=== PATIENT | female | born 1980 | race Caucasian/White ===

== ENCOUNTER 2017-07-09 13:01 | Emergency (ER) | payer SELFPAY ==
[~2017-07-09 13:01] MED LIST: CEPH-460 PO; DIAZ5 PO; IBUP800T23 PO; ROBA750T PO
[2017-07-09 13:14] VITALS: BP 115/77; PULSE 94; RESP 20; TEMP 99.3; O2SAT 97
[2017-07-09] MEDS ORDERED: SODIUM CHLORIDE 0.9% FLUSH 10 ML FLUSH IVF PRN (13:15)
--- NOTE | 2017-07-09 13:17 | PD ---
HPI Chief Complaint: OD/ Ingestion Time Seen by Provider: 13:10 Travel History International Travel<30 days: No Contact w/Intl Traveler<30days: No History of Present Illness HPI Patient comes in by EMS after being found unconscious by family. Patient states that she injected heroin in her bathroom walked in the bedroom and is the last thing she recalls. Patient received Narcan by fire department per EMS arrival that allow the patient to become alert and oriented 3. Patient denies any intentional attempt to harm her self states she is injected more heroin than normal thinking that she would be able to "handle it" causing her to overdose unintentionally. Patient denies any medical complaints this time. Denies any fevers, nausea, vomiting, abdominal pain, chest pain, shortness of breath, change bowel or bladder, dizziness, or headache. Denies anything making her symptoms better or worse. PFSH Past Medical History Respiratory: Yes (ASTHMA) Social History Alcohol Use: No Tobacco Use: Yes Substance Use: Yes (heroin) Allergies-Medications (Allergen,Severity, Reaction): Coded Allergies: doxycycline (Unverified Allergy, Intermediate, RASH, 05/28/17) methocarbamol (Verified Allergy, Unknown, SEIZURE, 07/09/17) *MDRO Multi-Drug Resistant Organism (Verified Adverse Reaction, Unknown, 10/09/16) MRSA (arm-08/08/16) Reported Meds & Prescriptions Reported Meds & Active Scripts Active Ibuprofen 800 Mg Tab 800 Mg PO TID PRN Reported Valium (Diazepam) 5 Mg Tab 5 Mg PO HS PRN Review of Systems Except as stated in HPI: all other systems reviewed are Neg Physical Exam Narrative GENERAL: Well-developed, well nourished, in no acute distress, and non-ill appearing. SKIN: Focused skin assessment warm and dry. HEAD: Atraumatic. Normocephalic. EYES: Pupils equal and round. EOMI. No scleral icterus. No injection or drainage. ENT: No nasal bleeding or discharge. Mucous membranes pink and moist. NECK: Trachea midline. No JVD. Supple. No nuclear rigidity. CARDIOVASCULAR: Regular rate and rhythm. No murmur appreciated. RESPIRATORY: No accessory muscle use. No respiratory distress. Clear to auscultation. Breath sounds equal bilaterally. GASTROINTESTINAL: Abdomen soft, non-tender, nondistended, and no guarding. Hepatic and splenic margins not palpable. Normal bowel sounds 4. No pulsatile mass. MUSCULOSKELETAL: No obvious deformities. No clubbing. No cyanosis. No edema. Full range of motion. NEUROLOGICAL: Awake and alert. No obvious cranial nerve deficits. Motor grossly within normal limits. Normal speech. PSYCHIATRIC: Appropriate mood and affect; insight and judgment normal. Data Data Last Documented VS Vital Signs Date Time Temp Pulse Resp B/P (MAP) Pulse Ox O2 Delivery O2 Flow Rate FiO2 07/09/17 16:56 80 18 102/65 (77) 99 Room Air 07/09/17 13:14 99.3 Orders Orders Electrocardiogram (07/09/17 13:11) Basic Metabolic Panel (Bmp) (07/09/17 13:11) Complete Blood Count With Diff (07/09/17 13:11) Prothrombin Time / Inr (Pt) (07/09/17 13:11) Act Partial Throm Time (Ptt) (07/09/17 13:11) Urinalysis - C+S If Indicated (07/09/17 13:11) Chest, Single Ap (07/09/17 13:11) Ct Brain W/O Iv Contrast(Rout) (07/09/17 13:11) Iv Access Insert/Monitor (07/09/17 13:11) Ecg Monitoring (07/09/17 13:11) Oximetry (07/09/17 13:11) Sodium Chloride 0.9% Flush (Ns Flush) (07/09/17 13:15) Drug Screen, Random Urine (07/09/17 13:11) Alcohol (Ethanol) (07/09/17 13:11) Salicylates (Aspirin) (07/09/17 13:11) Tylenol (Acetaminophen) (07/09/17 13:11) Ed Urine Pregnancytest Poc (07/09/17 13:11) Sodium Chlor 0.9% 1000 Ml Inj (Ns 1000 M (07/09/17 14:15) Urine Culture (07/09/17 14:00) Labs Laboratory Tests Test 07/09/17 13:50 07/09/17 14:00 White Blood Count 9.4 TH/MM3 Red Blood Count 4.19 MIL/MM3 Hemoglobin 13.1 GM/DL Hematocrit 38.8 % Mean Corpuscular Volume 92.6 FL Mean Corpuscular Hemoglobin 31.2 PG Mean Corpuscular Hemoglobin Concent 33.7 % Red Cell Distribution Width 14.3 % Platelet Count 218 TH/MM3 Mean Platelet Volume 7.7 FL Neutrophils (%) (Auto) 70.6 % Lymphocytes (%) (Auto) 20.3 % Monocytes (%) (Auto) 7.6 % Eosinophils (%) (Auto) 1.0 % Basophils (%) (Auto) 0.5 % Neutrophils # (Auto) 6.6 TH/MM3 Lymphocytes # (Auto) 1.9 TH/MM3 Monocytes # (Auto) 0.7 TH/MM3 Eosinophils # (Auto) 0.1 TH/MM3 Basophils # (Auto) 0.0 TH/MM3 CBC Comment DIFF FINAL Differential Comment Prothrombin Time 10.9 SEC Prothromb Time International Ratio 1.0 RATIO Activated Partial Thromboplast Time 26.1 SEC Blood Urea Nitrogen 11 MG/DL Creatinine 0.81 MG/DL Random Glucose 85 MG/DL Calcium Level 8.1 MG/DL Sodium Level 138 MEQ/L Potassium Level 3.6 MEQ/L Chloride Level 105 MEQ/L Carbon Dioxide Level 27.0 MEQ/L Anion Gap 6 MEQ/L Estimat Glomerular Filtration Rate 80 ML/MIN Salicylates Level 2.6 MG/DL Acetaminophen Level LESS THAN 2.0 MCG/ML Ethyl Alcohol Level LESS THAN 3 MG/DL Urine Color YELLOW Urine Turbidity HAZY Urine pH 6.5 Urine Specific [place] 1.024 Urine Protein 30 mg/dL Urine Glucose (UA) NEG mg/dL Urine Ketones NEG mg/dL Urine Occult Blood NEG Urine Nitrite NEG Urine Bilirubin NEG Urine Urobilinogen 2.0 MG/DL Urine Leukocyte Esterase LARGE Urine RBC 3 /hpf Urine WBC 24 /hpf Urine Squamous Epithelial Cells 33 /hpf Urine Bacteria OCC /hpf Urine Mucus FEW /lpf Microscopic Urinalysis Comment CULTURE INDICATED Urine Opiates Screen NEG Urine Barbiturates Screen NEG Urine Amphetamines Screen NEG Urine Benzodiazepines Screen POS Urine Cocaine Screen POS Urine Cannabinoids Screen NEG MDM Medical Decision Making Medical Screen Exam Complete: Yes Emergency Medical Condition: Yes Interpretation(s) EKG reviewed by Dr. Rueda shows normal sinus rhythm with ventricular rate of 89. No STEMI. CT the head read by the radiologist shows: Normal examination. Chest x-ray read by the radiologist shows: No acute cardiopulmonary disease. Differential Diagnosis Accidental overdose, intentional overdose, electrolyte abnormality, pneumonia, closed head injury, intracranial hemorrhage, UTI, other Narrative Course Patient was seen and examined. Initial laboratory and radiological studies were ordered. Patient was placed on traffic monitor specialist and IV was established. Labs were reviewed. I suspect the patient's urine is contaminated based on number of squamous cells. We'll await culture prior to treating as patient is asymptomatic as well. Patient was monitored in the ER for little more than 4 hours with no need for additional Narcan. Patient in no obvious distress upon re-evaluation. All pertinent laboratory/ Radiology result(s) discussed with patient. Discussed patient with Dr. Rueda , who is in agreement with plan of care and disposition. Any questions/ concerns in reference to patient diagnosis/condition discussed and clarified prior to patient's discharge. Reinforced sheer importance of close follow up with patient's primary physician or primary care clinic and/or [facility] for possible detox and rehabilitation. Instructed patient to return to ED immediately, if symptoms return/worsen. Patient showed understanding of above instructions. Further instructions and recommendations were detailed in discharge paperwork. Patient ambulated without difficulty out of ED at discharge. Diagnosis Primary Impression: Accidental heroin overdose Qualified Codes: T40.1X1A - Poisoning by heroin, accidental (unintentional), initial encounter Referrals: [facility] Patient Instructions: General Instructions, Opioid Overdose (ED) Additional Instructions: Follow-up with your primary care physician and/or [facility] for detox. Stop doing drugs. Return to the emergency department if symptoms get worse. Disposition: 01 DISCHARGE HOME Condition: Stable Yfn Oglesby Jul 09, 2017 13:17
[2017-07-09 14:02] LABS: AUTOMATED NEUTROPHIL # 6.6 TH/MM3 (1.8-7.7); BASOPHIL % 0.5 % (0.0-2.0); EOSINOPHIL # 0.1 TH/MM3 (0-0.4); HEMATOCRIT 38.8 % (35.0-46.0); HEMO FLAGS DIFF FINAL; LYMPH % 20.3 % (9.0-44.0); LYMPHOCYTE # 1.9 TH/MM3 (1.0-4.8); MEAN CELL VOLUME 92.6 FL (80.0-100.0); MEAN CORPUSCULAR HEMOGLOBIN 31.2 PG (27.0-34.0); MEAN CORPUSCULAR HGB CONC 33.7 % (32.0-36.0); MONO % 7.6 % (0.0-8.0); NEUT % 70.6 % (16.0-70.0); PLATELET COUNT 218 TH/MM3 (150-450); RED BLOOD COUNT 4.19 MIL/MM3 (4.00-5.30); RED CELL DISTRIBUTION WIDTH 14.3 % (11.6-17.2); WHITE BLOOD COUNT 9.4 TH/MM3 (4.0-11.0)
[2017-07-09 14:11] LABS: APTT (PATIENT) 26.1 SEC (24.3-30.1); PROTHROMBIN TIME - PATIENT 10.9 SEC (9.8-11.6)
[2017-07-09] MEDS ORDERED: SODIUM CHLOR 0.9% 1000 ML INJ 1,000 ML IV ONE (14:15)
[2017-07-09 14:21] LABS: ANION GAP 6 MEQ/L (5-15); BLOOD UREA NITROGEN 11 MG/DL (7-18); CHLORIDE 105 MEQ/L (98-107); GLOMERULAR FILTRATION RATE 80 ML/MIN (>89); POTASSIUM 3.6 MEQ/L (3.5-5.1); SODIUM (NA) 138 MEQ/L (136-145)
[2017-07-09 14:22] LABS: ACETAMINOPHEN LESS THAN 2.0 MCG/ML (10.0-30.0); ALCOHOL LESS THAN 3 MG/DL (0-5)
[2017-07-09 14:30] LABS: BACTERIA, URINE OCC /hpf; BLOOD, URINE NEG (NEG); COMMENT (UR) CULTURE INDICATED; CULTURE IF INDICATED CULTURE INDICATED; GLUCOSE,URINE NEG (NEG); KETONE, URINE NEG (NEG); MUCUS URINE FEW /lpf (OCC); NITRITE,URINE NEG (NEG); PH, URINE 6.5 (5.0-8.5); SQUAMOUS EPITHELIAL CELL URINE 33 /hpf (0-5); URINE COLOR YELLOW (YELLW/STRAW)
--- NOTE | 2017-07-09 14:31 | RADRPT ---
EXAM DATE/TIME: 07/09/2017 13:55 [facility] COMPARISON: HUMERUS RIGHT (MIN 2VWS), October 09, 2016, 12:23. INDICATIONS : Chest pain. MEDICAL HISTORY : None. SURGICAL HISTORY : None. ENCOUNTER: Initial ACUITY: 1 day PAIN SCORE: 8/10 LOCATION: Bilateral chest mid. FINDINGS: A single view of the chest demonstrates the lungs to be symmetrically aerated without evidence of mas s, infiltrate or effusion. The cardiomediastinal contours are unremarkable. Osseous structures are intact. CONCLUSION: 1. No acute cardiopulmonary findings. Roger Johnson MD on July 09, 2017 at 14:28 Board Certified Radiologist. This report was verified electronically.
--- NOTE | 2017-07-09 14:36 | RADRPT ---
EXAM DATE/TIME: 07/09/2017 14:18 [facility] COMPARISON: CT BRAIN W/O CONTRAST, October 09, 2016, 13:07. INDICATIONS : Altered mental status. RADIATION DOSE: 56.35 CTDIvol (mGy) MEDICAL HISTORY : None SURGICAL HISTORY : None. ENCOUNTER: Initial ACUITY: 1 day PAIN SCALE: 0/10 LOCATION: cranial TECHNIQUE: Multiple contiguous axial images were obtained of the head. Using automated exposure control and adj ustment of the mA and/or kV according to patient size, radiation dose was kept as low as reasonably a chievable to obtain optimal diagnostic quality images. DICOM format image data is available electro nically for review and comparison. FINDINGS: CEREBRUM: The ventricles are normal for age. No evidence of midline shift, mass lesion, hemorrhage or acute in farction. No extra-axial fluid collections are seen. POSTERIOR FOSSA: The cerebellum and brainstem are intact. The 4th ventricle is midline. The cerebellopontine angle i s unremarkable. EXTRACRANIAL: The visualized portion of the orbits is intact. SKULL: The calvaria is intact. No evidence of skull fracture. CONCLUSION: Normal examination. Rios Buck MD on July 09, 2017 at 14:34 Board Certified Radiologist. This report was verified electronically.
[2017-07-09 16:56] VITALS: BP 102/65; PULSE 80; RESP 18; O2SAT 99
--- NOTE | 2017-07-10 15:25 | EKG ---
Date Performed: 07/09/2017 Time Performed: 13:40:50 PTAGE: 36 years EKG: Sinus rhythm NORMAL ECG NO PREVIOUS TRACING DOCTOR: Rachelle Quiroga Interpretating Date/Time 07/10/2017 15:24:25
== END 2017-07-09 17:07 | disposition home or self-care (01) ==
LOC: NEPE 13:01
DX: T40.1X1A Poisoning by heroin, accidental (unintentional), initial encounter (principal); Y92.003 Bedroom of unspecified non-institutional (private) residence as the place of occurrence of the external cause; J45.909 Unspecified asthma, uncomplicated; R07.9 Chest pain, unspecified
CPT/HCPCS: 70450; 71010; 80048; 80307; 81001; 84703; 85025; 85610; 85730; 87086; 93005; 96360; 99285; J7030

== ENCOUNTER 2017-08-02 16:33 | Emergency (ER) | payer SELFPAY ==
[~2017-08-02] VITALS: Ht 165.1 cm; Wt 61.0 kg
[~2017-08-02 16:33] MED LIST changes: -CEPH-460 PO; -ROBA750T PO
[2017-08-02 16:34] VITALS: BP 150/71; PULSE 90; RESP 14; TEMP 98.3; O2SAT 98
--- NOTE | 2017-08-02 18:11 | PD ---
HPI Chief Complaint: Laceration/Skin Injury Time Seen by Provider: 17:47 Travel History International Travel<30 days: No Contact w/Intl Traveler<30days: No Traveled to known affect area: No History of Present Illness HPI The patient was seen and examined in the presence of the nurse. This patient complains of an abscess on her right forearm. She has history of IV drug abuse but quit 2 months ago. She says this is not an injection site that she is ever used. She denies fever. Duration is 2 weeks. No drainage or fever. Symptoms severity is moderate. PFSH Past Medical History Diabetes: No Respiratory: Yes (ASTHMA) ?: Unknown Social History Alcohol Use: No Tobacco Use: Yes Substance Use: Yes (heroin) Allergies-Medications (Allergen,Severity, Reaction): Coded Allergies: doxycycline (Unverified Allergy, Intermediate, RASH, 05/28/17) methocarbamol (Verified Allergy, Unknown, SEIZURE, 07/09/17) *MDRO Multi-Drug Resistant Organism (Verified Adverse Reaction, Unknown, 10/09/16) MRSA (arm-08/08/16) Reported Meds & Prescriptions Reported Meds & Active Scripts Active Ibuprofen 800 Mg Tab 800 Mg PO TID PRN Reported Valium (Diazepam) 5 Mg Tab 5 Mg PO HS PRN Review of Systems General / Constitutional: No: Fever HENT: No: Headaches Cardiovascular: No: Chest Pain or Discomfort Respiratory: No: Cough Physical Exam Narrative Right forearm: Patient has an abscess that is fluctuant in the mid right forearm. There is minor surrounding erythema. No ascending lymphangitis. SKIN: Focused skin assessment reveals no rash or ulcers. Skin is warm and dry. Palpation shows no induration or nodules. NECK: Symmetrical appearance, midline trachea. No mass or crepitus. Thyroid without enlargement, tenderness, or mass. Psych: Normal mood and affect. Normal insight and judgment. Data Data Last Documented VS Vital Signs Date Time Temp Pulse Resp B/P (MAP) Pulse Ox O2 Delivery O2 Flow Rate FiO2 08/02/17 16:34 98.3 90 14 150/71 (97) 98 Orders Orders Wound Culture And Gram Stain (08/02/17 17:59) MDM Medical Decision Making Medical Screen Exam Complete: Yes Emergency Medical Condition: Yes Medical Record Reviewed: Yes Differential Diagnosis Abscess, carbuncle, cellulitis Narrative Course I have reviewed the patient's electronic medical record. Patient has an abscess of the right forearm Procedure note: Patient gives verbal consent to incise and drain her abscess. That is why she came to the ER. I numbed it up using ethyl chloride spray I incised it with an 11 blade scalpel and obtained a large quantity of thick yellow pus. Culture and Gram stain was obtained Patient tolerated procedure without complication Dressing applied I am prescribing a week of Bactrim DS Stable for outpatient follow-up Diagnosis Primary Impression: Abscess of right forearm Additional Impression: Encounter for incision and drainage procedure Additional Instructions: Use warm compresses Take antibiotics The patient was advised to follow up with their physician and return if they worsen. Med/Other Pt SpecificInfo: Prescription(s) given Disposition: 01 DISCHARGE HOME Condition: Stable Ron Chin MD Aug 02, 2017 18:11
[2017-08-02] MEDS ORDERED: BACT800T5 PO (18:12)
[2017-08-02 18:26] VITALS: BP 138/74
[2017-08-09] MEDS ORDERED: CLIN1CAP5 PO (16:38)
== END 2017-08-02 18:40 | disposition home or self-care (01) ==
LOC: NEPE 16:33
DX: L02.413 Cutaneous abscess of right upper limb (principal); B95.62 Methicillin resistant Staphylococcus aureus infection as the cause of diseases classified elsewhere
CPT/HCPCS: 10060; 86403; 87070; 87186; 87205

== ENCOUNTER 2017-08-07 12:25 | Observation (INO) | payer SELFPAY ==
[2017-08-07] VITALS (7 sets, daily range): BP systolic 90–126; BP diastolic 55–80; PULSE 77–104; RESP 12–20; TEMP 97.6–97.8; O2SAT 94–100
[~2017-08-07] VITALS: Ht 165.1 cm; Wt 62.0 kg
[~2017-08-07 12:25] MED LIST changes: +BACT800T5 PO
[2017-08-07] MEDS ORDERED: SODIUM CHLOR 0.9% 1000 ML INJ 1,000 ML IV ONE (12:27)
[2017-08-07] MEDS ORDERED: SODIUM CHLORIDE 0.9% FLUSH 10 ML FLUSH IVF PRN (12:30)
--- NOTE | 2017-08-07 12:32 | PD ---
HPI Chief Complaint: overdose Time Seen by Provider: 12:27 Travel History International Travel<30 days: No Contact w/Intl Traveler<30days: No Traveled to known affect area: No History of Present Illness HPI 36-year-old female patient with history of IV drug use, presents to the ER today brought in by EMS after she had a heroin overdose. Patient was found in the bathtub by EMS with her mouth and nose just slightly above water. She apparently was given heroin by a friend. EMS had given her 2 mg of IM Narcan. She states that she currently feels chilly all over. She denies any chest pains , shortness of breath, or other issues. Modifying Factors: None Associated Signs & Symptoms: Heroin overdose Risk Factors: None PFSH Past Medical History Diabetes: No Diminished Hearing: No Respiratory: Yes (ASTHMA) Social History Alcohol Use: No Tobacco Use: Yes (10/15 PPD) Substance Use: Yes (HEROIN, LAST USE 06/30) Allergies-Medications (Allergen,Severity, Reaction): Coded Allergies: doxycycline (Unverified Allergy, Intermediate, RASH, 08/07/17) methocarbamol (Verified Allergy, Unknown, SEIZURE, 08/07/17) *MDRO Multi-Drug Resistant Organism (Verified Adverse Reaction, Unknown, 08/07/17) MRSA (arm-08/08/16) Reported Meds & Prescriptions Reported Meds & Active Scripts Active Bactrim DS (Sulfamethoxazole-Trimethoprim) 800-160 Mg Tab 1 Tab PO BID Ibuprofen 800 Mg Tab 800 Mg PO TID PRN Reported Valium (Diazepam) 5 Mg Tab 5 Mg PO HS PRN Review of Systems Except as stated in HPI: all other systems reviewed are Neg Physical Exam Narrative GENERAL: Well-developed middle age white female patient currently mild distress. Awake and oriented 3. SKIN: Focused skin assessment warm/dry. Notable for track dumont on both arms. HEAD: Atraumatic. Normocephalic. EYES: Pupils equal and round. No scleral icterus. No injection or drainage. ENT: No nasal bleeding or discharge. Mucous membranes pink and moist. NECK: Trachea midline. No JVD. CARDIOVASCULAR: Regular rate and rhythm. No murmur appreciated. RESPIRATORY: No accessory muscle use. Clear to auscultation. Breath sounds equal bilaterally. GASTROINTESTINAL: Abdomen soft, non-tender, nondistended. Hepatic and splenic margins not palpable. MUSCULOSKELETAL: No obvious deformities. No clubbing. No cyanosis. No edema. NEUROLOGICAL: Awake and alert. No obvious cranial nerve deficits. Motor grossly within normal limits. Normal speech. PSYCHIATRIC: Appropriate mood and affect; insight and judgment poor. Data Data Last Documented VS Vital Signs Date Time Temp Pulse Resp B/P (MAP) Pulse Ox O2 Delivery O2 Flow Rate FiO2 08/07/17 13:30 99 14 126/71 (89) 100 Room Air 08/07/17 12:27 97.6 Orders Orders Electrocardiogram (08/07/17 12:27) Complete Blood Count With Diff (08/07/17 12:27) Comprehensive Metabolic Panel (08/07/17 12:27) Chest, Single Ap (08/07/17 12:27) Iv Access Insert/Monitor (08/07/17 12:27) Ecg Monitoring (08/07/17 12:27) Oximetry (08/07/17 12:27) Sodium Chloride 0.9% Flush (Ns Flush) (08/07/17 12:30) Sodium Chlor 0.9% 1000 Ml Inj (Ns 1000 M (08/07/17 12:27) Drug Screen, Random Urine (08/07/17 12:27) Alcohol (Ethanol) (08/07/17 12:27) Ed Urine Pregnancytest Poc (08/07/17 12:27) Labs Laboratory Tests Test 08/07/17 12:50 White Blood Count 8.4 TH/MM3 Red Blood Count 4.51 MIL/MM3 Hemoglobin 13.9 GM/DL Hematocrit 41.5 % Mean Corpuscular Volume 92.1 FL Mean Corpuscular Hemoglobin 30.8 PG Mean Corpuscular Hemoglobin Concent 33.5 % Red Cell Distribution Width 14.3 % Platelet Count 288 TH/MM3 Mean Platelet Volume 7.4 FL Neutrophils (%) (Auto) 60.8 % Lymphocytes (%) (Auto) 30.9 % Monocytes (%) (Auto) 6.1 % Eosinophils (%) (Auto) 1.5 % Basophils (%) (Auto) 0.7 % Neutrophils # (Auto) 5.1 TH/MM3 Lymphocytes # (Auto) 2.6 TH/MM3 Monocytes # (Auto) 0.5 TH/MM3 Eosinophils # (Auto) 0.1 TH/MM3 Basophils # (Auto) 0.1 TH/MM3 CBC Comment DIFF FINAL Differential Comment Total Protein 8.0 GM/DL Alkaline Phosphatase 68 U/L Total Bilirubin 0.2 MG/DL Anion Gap 5 MEQ/L Estimat Glomerular Filtration Rate 80 ML/MIN Ethyl Alcohol Level LESS THAN 3 MG/DL MDM Medical Decision Making Medical Screen Exam Complete: Yes Emergency Medical Condition: Yes Medical Record Reviewed: Yes Interpretation(s) EKG shows NSR, no ST elevation or depression, and no arrhythmias. No significant T-wave inversions. Laboratory Tests Test 08/07/17 12:50 Estimat Glomerular Filtration Rate 80 ML/MIN (>89) Last 24 hours Impressions Chest X-Ray 08/07/17 1227 Signed Impressions: Service Date/Time: Saturday, August 07, 2017 12:56 - CONCLUSION: No acute disease. There is no evidence of pneumonia. Fox Linder MD Differential Diagnosis Apparent overdose: Rule out coingestions and other intoxicants Narrative Course Patient was given Narcan by EMS and is currently awake and oriented. Chest x- ray did not show any signs of aspiration or acute pulmonary issues. Vital signs are stable in the ER. She was arousable in the ER and at this point, my plan would be to admit her as an observation for heroin overdose. Case is discussed with Dr. Carrillo for admission. Diagnosis Primary Impression: Heroin overdose Admitting Information Admitting Physician Requests: Admit Olga Ferreira MD Aug 07, 2017 12:32
[2017-08-07 12:58] LABS: AUTOMATED NEUTROPHIL # 5.1 TH/MM3 (1.8-7.7); BASOPHIL # 0.1 TH/MM3 (0-0.2); BASOPHIL % 0.7 % (0.0-2.0); EOSINOPHIL # 0.1 TH/MM3 (0-0.4); EOSINOPHIL % 1.5 % (0.0-4.0); HEMATOCRIT 41.5 % (35.0-46.0); HEMOGLOBIN 13.9 GM/DL (11.6-15.3); LYMPH % 30.9 % (9.0-44.0); LYMPHOCYTE # 2.6 TH/MM3 (1.0-4.8); MEAN CELL VOLUME 92.1 FL (80.0-100.0); MEAN CORPUSCULAR HEMOGLOBIN 30.8 PG (27.0-34.0); MEAN CORPUSCULAR HGB CONC 33.5 % (32.0-36.0); MEAN PLATELET VOLUME 7.4 FL (7.0-11.0); MONO % 6.1 % (0.0-8.0); MONOCYTE # 0.5 TH/MM3 (0-0.9); NEUT % 60.8 % (16.0-70.0); PLATELET COUNT 288 TH/MM3 (150-450); RED BLOOD COUNT 4.51 MIL/MM3 (4.00-5.30); RED CELL DISTRIBUTION WIDTH 14.3 % (11.6-17.2); WHITE BLOOD COUNT 8.4 TH/MM3 (4.0-11.0)
--- NOTE | 2017-08-07 13:05 | RADRPT ---
EXAM DATE/TIME: 08/07/2017 12:56 [facility] COMPARISON: CHEST SINGLE AP, July 09, 2017, 13:55. INDICATIONS : Cough. MEDICAL HISTORY : None. SURGICAL HISTORY : None. ENCOUNTER: Initial ACUITY: 4 - 6 days PAIN SCORE: 0/10 LOCATION: Bilateral chest FINDINGS: A single view of the chest demonstrates the lungs to be symmetrically aerated without evidence of mas s, infiltrate or effusion. The cardiomediastinal contours are unremarkable. Osseous structures are intact. CONCLUSION: No acute disease. There is no evidence of pneumonia. Fox Linder MD on August 07, 2017 at 13:04 Board Certified Radiologist. This report was verified electronically.
[2017-08-07 13:15] LABS: ALBUMIN 3.6 GM/DL (3.4-5.0); AST (GOT) 29 U/L (15-37); BICARBONATE 27.6 MEQ/L (21.0-32.0); BLOOD UREA NITROGEN 9 MG/DL (7-18); CALCIUM 8.9 MG/DL (8.5-10.1); CHLORIDE 103 MEQ/L (98-107); CREATININE 0.81 MG/DL (0.50-1.00); GLOMERULAR FILTRATION RATE 80 ML/MIN (>89); GLUCOSE,RANDOM 82 MG/DL (74-106); SODIUM (NA) 136 MEQ/L (136-145)
[2017-08-07 13:16] LABS: ALT (GPT) 44 U/L (10-53)
[2017-08-07 13:18] LABS: ALKALINE PHOSPHATASE 68 U/L (45-117); TOTAL BILIRUBIN ADULT 0.2 MG/DL (0.2-1.0)
[2017-08-07] MEDS ORDERED: LACTULOSE SYRUP 20 GM/30 ML CUP PO PRN (15:30)
[2017-08-07] MEDS ORDERED: MAGNESIUM HYDROXIDE SUSP 30 ML CUP PO PRN (15:30)
[2017-08-07] MEDS ORDERED: SODIUM CHLORIDE 0.9% FLUSH 10 ML FLUSH IV FLUSH PRN (15:30)
[2017-08-07] MEDS ORDERED: BISACODYL 10 MG SUPP RECTAL PRN (15:30)
[2017-08-07] MEDS ORDERED: ONDANSETRON HCL 4 MG/2 ML VIAL IVP PRN (15:30)
[2017-08-07] MEDS ORDERED: ACETAMINOPHEN 325 MG TAB PO PRN (15:30)
[2017-08-07] MEDS ORDERED: NALOXONE HCL 0.4 MG/ML AMP IV PUSH PRN (15:30)
[2017-08-07] MEDS ORDERED: SENNOSIDES 8.6 MG TAB PO PRN (15:30)
--- NOTE | 2017-08-07 15:59 | HHI.HP ---
HPI Service [facility] Primary Care Physician No Primary Care Physician Admission Diagnosis heroine overdosed Diagnoses: Chief Complaint: heroin OD Travel History International Travel<30 Days: No Contact w/Intl Traveler <30 Da: No Traveled to Known Affected Are: No History of Present Illness 36-year-old female patient with history of IV drug use, presents to the ER today brought in by EMS after she had a heroin overdose. Patient was found in the bathtub by EMS with her mouth and nose just slightly above water. She apparently was given heroin by a friend. EMS had given her 2 mg of IM Narcan. She states that she currently feels chilly all over. She denies any chest pains , shortness of breath, or other issues. She is feeling tired and sleepy. Has no pain at this time. No n/v/d/c. No chest sam or sob, no wheezing. Denies urinary complaints. No fever or chills. No cough. Review of Systems Except as stated in HPI: all other systems reviewed are Neg Past Family Social History Past Medical History Denies having medical problems Past Surgical History No surgeries in the past Reported Medications Last Impressions Chest X-Ray 08/07/17 1227 Signed Impressions: Service Date/Time: Monday, August 07, 2017 12:56 - CONCLUSION: No acute disease. There is no evidence of pneumonia. Fox Linder MD Allergies: Coded Allergies: doxycycline (Unverified Allergy, Intermediate, RASH, 08/07/17) methocarbamol (Verified Allergy, Unknown, SEIZURE, 08/07/17) *MDRO Multi-Drug Resistant Organism (Verified Adverse Reaction, Unknown, 08/07/17) MRSA (arm-08/08/16) Family History Mother with hypertension and anxiety Social History Methadone use from her friend almost daily. IV heroine use last time used with 06/2017. She says she did use IV heroin prior to admission today and overdosed. Physical Exam Vital Signs Vital Signs Date Time Temp Pulse Resp B/P (MAP) Pulse Ox O2 Delivery O2 Flow Rate FiO2 08/07/17 15:30 99 18 117/65 (82) 100 Room Air 08/07/17 14:30 90 20 126/71 (89) 100 Room Air 08/07/17 13:30 99 14 126/71 (89) 100 Room Air 08/07/17 12:44 94 12 100 Room Air 08/07/17 12:37 100 Room Air 08/07/17 12:27 97.6 104 12 122/80 (94) 99 Physical Exam GENERAL: This is a well-nourished, well-developed patient, in no apparent distress. SKIN: Track dumont on both arms, and some on legs. Cool and dry. HEAD: Atraumatic. Normocephalic. No temporal or scalp tenderness. EYES: Pupils equal round and reactive. Extraocular motions intact. No scleral icterus. No injection or drainage. ENT: Nose without bleeding, purulent drainage or septal hematoma. Throat without erythema, tonsillar hypertrophy or exudate. Uvula midline. Airway patent. NECK: Trachea midline. No JVD or lymphadenopathy. Supple, nontender, no meningeal signs. CARDIOVASCULAR: Regular rate and rhythm without murmurs, gallops, or rubs. RESPIRATORY: Clear to auscultation. Breath sounds equal bilaterally. No wheezes , rales, or rhonchi. GASTROINTESTINAL: Abdomen soft, non-tender, nondistended. No hepato-splenomegaly , or palpable masses. No guarding. MUSCULOSKELETAL: Extremities without clubbing, cyanosis, or edema. No joint tenderness, effusion, or edema noted. No calf tenderness. Negative Homans sign bilaterally. NEUROLOGICAL: Awake and alert. Cranial nerves II through XII intact. Motor and sensory grossly within normal limits. Five out of 5 muscle strength in all muscle groups. Normal speech. Laboratory Laboratory Tests Test 08/07/17 12:50 White Blood Count 8.4 Red Blood Count 4.51 Hemoglobin 13.9 Hematocrit 41.5 Mean Corpuscular Volume 92.1 Mean Corpuscular Hemoglobin 30.8 Mean Corpuscular Hemoglobin Concent 33.5 Red Cell Distribution Width 14.3 Platelet Count 288 Mean Platelet Volume 7.4 Neutrophils (%) (Auto) 60.8 Lymphocytes (%) (Auto) 30.9 Monocytes (%) (Auto) 6.1 Eosinophils (%) (Auto) 1.5 Basophils (%) (Auto) 0.7 Neutrophils # (Auto) 5.1 Lymphocytes # (Auto) 2.6 Monocytes # (Auto) 0.5 Eosinophils # (Auto) 0.1 Basophils # (Auto) 0.1 CBC Comment DIFF FINAL Differential Comment Total Protein 8.0 Alkaline Phosphatase 68 Total Bilirubin 0.2 Anion Gap 5 Estimat Glomerular Filtration Rate 80 Ethyl Alcohol Level LESS THAN 3 Result Diagram: 08/07/17 1250 Imaging Last Impressions Chest X-Ray 08/07/17 1227 Signed Impressions: Service Date/Time: Monday, August 07, 2017 12:56 - CONCLUSION: No acute disease. There is no evidence of pneumonia. MD Velma Johnston VTE Risk Assessment Caprini VTE Risk Assessment: Mod/High Risk (score >= 2) Caprini Risk Assessment Model Point Value = 1 Point Value = 2 Point Value = 3 Point Value = 5 Age 41-60 Minor surgery BMI > 25 kg/m2 Swollen legs Varicose veins or History of unexplained or recurrent spontaneous Oral contraceptives or hormone replacement Sepsis (< 1 month) Serious lung disease, including pneumonia (< 1 month) Abnormal pulmonary function Acute myocardial infarction Congestive heart failure (< 1 month) History of inflammatory bowel disease Medical patient at bed rest Age 61-74 Arthroscopic surgery Major open surgery (> 45 min) Laparoscopic surgery (> 45 min) Malignancy Confined to bed (> 72 hours) Immobilizing plaster cast Central venous access Age >= 75 History of VTE Family history of VTE Factor V Leiden Prothrombin [id number] Lupus anticoagulant Anticardiolipin antibodies Elevated serum homocysteine Heparin-induced thrombocytopenia Other congenital or acquired thrombophilia Stroke (< 1 month) Elective arthroplasty Hip, pelvis, or leg fracture Acute spinal cord injury (< 1 month) Prophylaxis Regimen Total Risk Factor Score Risk Level Prophylaxis Regimen 0-1 Low Early ambulation 2 Moderate Order ONE of the following: *Sequential Compression Device (SCD) *Heparin 5000 units SQ BID 3-4 Higher Order ONE of the following medications: *Heparin 5000 units SQ TID *Enoxaparin/Lovenox 40 mg SQ daily (WT < 150 kg, CrCl > 30 mL/min) *Enoxaparin/Lovenox 30 mg SQ daily (WT < 150 kg, CrCl > 10-29 mL/min) *Enoxaparin/Lovenox 30 mg SQ BID (WT < 150 kg, CrCl > 30 mL/min) AND/OR *Sequential Compression Device (SCD) 5 or more Highest Order ONE of the following medications: *Heparin 5000 units SQ TID (Preferred with Epidurals) *Enoxaparin/Lovenox 40 mg SQ daily (WT < 150 kg, CrCl > 30 mL/min) *Enoxaparin/Lovenox 30 mg SQ daily (WT < 150 kg, CrCl > 10-29 mL/min) *Enoxaparin/Lovenox 30 mg SQ BID (WT < 150 kg, CrCl > 30 mL/min) AND *Sequential Compression Device (SCD) Assessment and Plan Assessment and Plan 36-year-old female with Heroin overdose EKG shows NSR, no ST elevation or depression, and no arrhythmias. No significant T-wave inversions. CXR reviewed no PNA Received narcan by EMS. She is more awake and alert VS so far stable. Monitor on telemetry. Consult psych Monitor closely RR and pulse O2 O2 supplement if need DVT ppx SCD/TEDs Discussed Condition With patient, nurse, ED physician Verena Carrillo MD Aug 07, 2017 15:59
[2017-08-07] MEDS ORDERED: ENOXAPARIN SODIUM 40 MG/0.4 ML SYRINGE SQ SCH (16:00)
[2017-08-07] MEDS ORDERED: SODIUM CHLOR 0.9% 1000 ML INJ 1,000 ML IV SCH (16:00)
--- NOTE | 2017-08-07 20:22 | PD.AMA ---
Against Medical Advice Note Diagnosis: (1) Heroin overdose Discharge Disposition: Against Medical Advice Pt Condition on Discharge: Fair AMA Statement Patient Claudia Whipple has decided to leave the hospital against medical advice. This patient has the capacity to refuse care and understands the risks of leaving, including permanent disability and/or , and has had an opportunity to ask questions about her condition. The patient has been informed that she may return for care at any time, and follow up has been arranged/advised. She verbalizes understanding that staying is in her best interest, but she states she can not and needs to get home to her dogs. She states she has no one to help. Carly Bishop Aug 07, 2017 20:22
[2017-08-07] MEDS ORDERED: SODIUM CHLORIDE 0.9% FLUSH 10 ML FLUSH IV FLUSH SCH (21:00)
[2017-08-07] MEDS ORDERED: DOCUSATE SODIUM 50 MG/SENNA 8.6 MG TAB PO SCH (21:00)
--- NOTE | 2017-08-08 15:00 | EKG ---
Date Performed: 08/07/2017 Time Performed: 13:08:12 PTAGE: 36 years EKG: Sinus rhythm NORMAL ECG PREVIOUS TRACING : 07/09/2017 13.40 Compared to prior tracing no significant change DOCTOR: Hayley Rothman Interpretating Date/Time 08/08/2017 14:54:20
[2017-08-09] MEDS ORDERED: CLIN1CAP5 PO (16:38)
== END 2017-08-07 20:20 | disposition left against medical advice (07) ==
LOC: NEPC 12:25 → NEDA 15:20 → NEPHCDU 16:24
PROVIDERS: ADMIT Hospitalist; ATTEND Hospitalist
DX: T40.1X1A Poisoning by heroin, accidental (unintentional), initial encounter (principal); J45.909 Unspecified asthma, uncomplicated
CPT/HCPCS: 71010; 80053; 80307; 85025; 93005; 96360; 96372; 99285; G0378; J1650; J7030

== ENCOUNTER 2017-08-09 16:07 | Emergency (ER) | payer SELFPAY ==
[~2017-08-09] VITALS: Ht 165.1 cm; Wt 62.0 kg
[~2017-08-09 16:07] MED LIST changes: +IBUP1TAB7 PO; -IBUP800T23 PO
[2017-08-09 16:09] VITALS: BP 155/81; PULSE 77; RESP 13; TEMP 98.7; O2SAT 100
[2017-08-09] MEDS ORDERED: CLIN150C14 PO (16:38)
[2017-08-09] MEDS ORDERED: BACT800T5 PO (16:38)
--- NOTE | 2017-08-09 16:38 | PD ---
HPI Chief Complaint: Skin Problem Time Seen by Provider: 16:26 Travel History International Travel<30 days: No Contact w/Intl Traveler<30days: No Traveled to known affect area: No History of Present Illness HPI 36 years old female complains of pain and swelling to left forearm. Patient was seen in emergency room a week ago had I&D of right forearm abscess. Patient was given prescription for Bactrim DS. Patient has been taking Bactrim DS once a day. Patient states that she started having increasing redness swelling and left forearm for the past several days. Patient denies any fever chills. Patient has history IV drug abuse. Patient denies any headache. Patient denies any chest pain or shortness of breath. Patient denies abdominal pain. Patient denies any focal weakness or numbness of extremity. Patient was seen in emergency room 2 days ago for heroin overdose. Patient signed out AMA at that time. Patient was at [facility] today. Patient requested medical clearance to go back to [facility]. PFSH Past Medical History Asthma: Yes Diabetes: No Diminished Hearing: No Respiratory: Yes (ASTHMA) Tetanus Vaccination: < 5 Years ?: Not LMP: 07/08/17 Past Surgical History Other Surgery: No Social History Alcohol Use: No Tobacco Use: Yes (10/15 PPD) Substance Use: Yes (HEROIN, LAST USE 08/07) Allergies-Medications (Allergen,Severity, Reaction): Coded Allergies: doxycycline (Unverified Allergy, Intermediate, RASH, 08/09/17) methocarbamol (Verified Allergy, Unknown, SEIZURE, 08/09/17) *MDRO Multi-Drug Resistant Organism (Verified Adverse Reaction, Unknown, 08/09/17) MRSA (arm-08/08/16) Reported Meds & Prescriptions Reported Meds & Active Scripts Active Bactrim DS (Sulfamethoxazole-Trimethoprim) 800-160 Mg Tab 1 Tab PO BID Ibuprofen 800 Mg Tab 800 Mg PO TID PRN Reported Valium (Diazepam) 5 Mg Tab 5 Mg PO HS PRN Review of Systems General / Constitutional: No: Fever Eyes: No: Visual changes HENT: No: Headaches Cardiovascular: No: Chest Pain or Discomfort Respiratory: No: Shortness of Breath Gastrointestinal: No: Abdominal Pain Genitourinary: No: Dysuria Musculoskeletal: No: Pain Skin: No Rash Neurologic: No: Weakness Psychiatric: No: Depression Endocrine: No: Polydipsia Hematologic/Lymphatic: No: Easy Bruising Physical Exam Narrative GENERAL: Well-nourished, well-developed patient. SKIN: Focused skin assessment warm/dry. HEAD: Normocephalic. EYES: No scleral icterus. No injection or drainage. NECK: Supple, trachea midline. No JVD or lymphadenopathy. CARDIOVASCULAR: Regular rate and rhythm without murmurs, gallops, or rubs. RESPIRATORY: Breath sounds equal bilaterally. No accessory muscle use. GASTROINTESTINAL: Abdomen soft, non-tender, nondistended. MUSCULOSKELETAL: No cyanosis, or edema. BACK: Nontender without obvious deformity. No CVA tenderness. Patient has an area redness swelling with mild tenderness left forearm on aspect. No induration no discharge. Data Data Last Documented VS Vital Signs Date Time Temp Pulse Resp B/P (MAP) Pulse Ox O2 Delivery O2 Flow Rate FiO2 08/09/17 16:09 98.7 77 13 155/81 (105) 100 Orders Orders Clindamycin (Cleocin) (08/09/17 16:45) Sulfamet-Trimeth Ds 800-160 Mg (Bactrim (08/09/17 16:45) MDM Medical Decision Making Medical Screen Exam Complete: Yes Emergency Medical Condition: Yes Differential Diagnosis Differential diagnosis including cellulitis, abscess. Narrative Course 36 years old female with an area redness swelling with mild tenderness on the left forearm. History of IV drug abuse. Clindamycin 300 mg by mouth. Bactrim DS one tablet by mouth given. Diagnosis Primary Impression: Cellulitis of left forearm Patient Instructions: General Instructions Additional Instructions: Take clindamycin and Bactrim DS as directed. Follow-up with personal physician. Return if worse. Med/Other Pt SpecificInfo: Prescription(s) given Scripts Clindamycin (Clindamycin) 150 Mg Cap 2 TAB PO QID for Infection, #80 CAP 0 Refills Prov: Karthikeyan Jorge MD 08/09/17 Sulfamethoxazole-Trimethoprim (Bactrim DS) 800-160 Mg Tab 1 TAB PO BID for Infection, #28 TAB 0 Refills Prov: Karthikeyan Jorge MD 08/09/17 Disposition: 01 DISCHARGE HOME Condition: Stable Karthikeyan Jorge MD Aug 09, 2017 16:38
[2017-08-09] MEDS ORDERED: CLINDAMYCIN 150 MG CAP PO ONE (16:45)
[2017-08-09] MEDS ORDERED: SULFAMETHOXAZOLE-TRIMETHOPRIM DS 800-160 MG TAB PO ONE (16:45)
== END 2017-08-09 17:04 | disposition home or self-care (01) ==
LOC: NEPD 16:07
DX: L03.114 Cellulitis of left upper limb (principal); J45.909 Unspecified asthma, uncomplicated
CPT/HCPCS: 99281